=== PATIENT | female | born 1995 | race Caucasian/White ===

== ENCOUNTER 2018-04-20 12:55 | Emergency (ER) | payer OTHER, MEDICAID ==
[2018-04-20 14:20] LABS: ADD MAN DIFF? NO
[2018-04-20 14:21] LABS: BASOPHILS % 0.3 % (0.0-2.0); EOSINOPHILS % 0.3 % (0.0-7.0); HEMATOCRIT 36.8 % (37.0-47.0); HEMOGLOBIN 12.7 g/dl (12.0-16.0); LYMPHOCYTES # 1.6 10^3/ul (0.8-2.9); LYMPHOCYTES % 14.1 % (18.0-55.0); MEAN CORPUSCULAR HEMOGLOBIN 30.2 pg (29.0-33.0); MEAN CORPUSCULAR HGB CONC 34.5 g/dl (32.0-37.0); MEAN CORPUSCULAR VOLUME 87.4 fl (72.0-104.0); MEAN PLATELET VOLUME 11.1 fl (7.4-10.4); MONOCYTE # 0.5 10^3/ul (0.3-0.9); MONOCYTES % 4.3 % (0.0-13.0); NEUTROPHIL # 9.1 10^3/ul (1.6-7.5); NEUTROPHILS % 80.6 % (30.0-74.0); PLATELET COUNT 226 10^3/UL (140-415); RED BLOOD COUNT 4.21 10^6/ul (4.20-5.40); RED CELL DISTRIBUTION WIDTH 12.5 % (11.5-14.5)
[2018-04-20 14:21] LABS: WHITE BLOOD COUNT 11.3 10^3/ul (4.8-10.8)
[2018-04-20] MEDS: METOCLOPRAMIDE 10 MG INJ IV (14:25)
[2018-04-20] MEDS: SOD CHLORIDE 0.9% 1,000 ML IV (14:25)
[2018-04-20 14:30] LABS: UR BACTERIA FEW /HPF (NONE SEEN); UR MUCUS MANY /HPF (NONE SEEN); UR RBC 1 /HPF (0-5); UR SQUAMOUS EPITHELIAL CELL FEW /HPF (FEW); UR WBC 3 /HPF (0-5)
[2018-04-20 14:39] LABS: ALANINE AMINOTRANSFERASE 12 IU/L (13-69); ALBUMIN 4.3 g/dl (3.3-4.9); ALBUMIN/GLOBULIN RATIO 1.34; ALKALINE PHOSPHATASE 53 IU/L (42-121); ANION GAP 12 (8-16); ASPARTATE AMINO TRANSFERASE 20 IU/L (15-46); BILIRUBIN,INDIRECT 0.8 mg/dl (0-1.1); BILIRUBIN,TOTAL 0.8 mg/dl (0.2-1.3); BLOOD UREA NITROGEN 10 mg/dl (7-20); CALCIUM 9.1 mg/dl (8.4-10.2); CARBON DIOXIDE 23 mmol/L (21-31); CHLORIDE 105 mmol/L (97-110); CREATININE 0.46 mg/dl (0.44-1.00); GLUCOSE 88 mg/dl (70-220); POTASSIUM 4.1 mmol/L (3.5-5.1); SODIUM 136 mmol/L (135-144); TOTAL PROTEIN 7.5 g/dl (6.1-8.1)
[2018-04-20 14:42] LABS: ADD UMIC YES; UR ASCORBIC ACID NEGATIVE (NEGATIVE); UR BILIRUBIN (Dip) NEGATIVE (NEGATIVE); UR BLOOD (Dip) NEGATIVE (NEGATIVE); UR CLARITY CLOUDY (CLEAR); UR COLOR YELLOW (YELLOW); UR GLUCOSE (Dip) NEGATIVE (NEGATIVE); UR KETONES (Dip) NEGATIVE (NEGATIVE); UR LEUKOCYTE ESTERASE (Dip) NEGATIVE Leu/ul (NEGATIVE); UR NITRITE (Dip) NEGATIVE (NEGATIVE); UR SPECIFIC GRAVITY (Dip) 1.025 (1.003-1.030); UR TOTAL PROTEIN (Dip) NEGATIVE (NEGATIVE); UR UROBILINOGEN (Dip) NEGATIVE (NEGATIVE)
== END 2018-04-20 16:22 | disposition home or self-care (01) ==
LOC: FTE 12:55
DX: O99.89 Other specified diseases and conditions complicating pregnancy, childbirth and the puerperium (principal); R42 Dizziness and giddiness; Z3A.17 17 weeks gestation of pregnancy
CPT/HCPCS: 36415; 76805; 80053; 81001; 85025; 96361; 96374; 99285-25

== ENCOUNTER 2018-09-30 18:59 | Inpatient (IN) | payer OTHER ==
[2018-09-30] MEDS ORDERED: LACTATED RINGER'S 1,000 ML IV (20:18)
[2018-09-30] MEDS: MINERAL OIL LIGHT 10 ML VIAL TOP (20:30)
[2018-09-30] MEDS ORDERED: OXYTOCIN 30 UNITS/LR 500 ML IV (20:30)
[2018-09-30] MEDS ORDERED: IBUPROFEN 600 MG TAB PO (20:30)
[2018-09-30] MEDS ORDERED: CARBOPROST 250 MCG INJ IM (20:30)
[2018-09-30] MEDS ORDERED: MISOPROSTOL 200 MCG TAB PR (20:30)
[2018-09-30] MEDS ORDERED: METHYLERGONOVINE 0.2 MG INJ IM (20:30)
[2018-09-30] MEDS ORDERED: BUTORPHANOL 2 MG INJ IV (20:30)
[2018-09-30 20:54] LABS: ADD MAN DIFF? NO
[2018-09-30 20:59] LABS: WHITE BLOOD COUNT 11.4 10^3/ul (4.8-10.8)
[2018-09-30 20:59] LABS: BASOPHILS % 0.4 % (0.0-2.0); EOSINOPHILS # 0.1 10^3/ul (0.0-0.5); EOSINOPHILS % 0.5 % (0.0-7.0); HEMATOCRIT 33.1 % (37.0-47.0); HEMOGLOBIN 11.1 g/dl (12.0-16.0); LYMPHOCYTES # 2.7 10^3/ul (0.8-2.9); LYMPHOCYTES % 23.5 % (18.0-55.0); MEAN CORPUSCULAR HEMOGLOBIN 29.9 pg (29.0-33.0); MEAN CORPUSCULAR HGB CONC 33.5 g/dl (32.0-37.0); MEAN CORPUSCULAR VOLUME 89.2 fl (72.0-104.0); MEAN PLATELET VOLUME 11.3 fl (7.4-10.4); MONOCYTE # 0.7 10^3/ul (0.3-0.9); MONOCYTES % 6.4 % (0.0-13.0); NEUTROPHIL # 7.8 10^3/ul (1.6-7.5); NEUTROPHILS % 68.6 % (30.0-74.0); PLATELET COUNT 192 10^3/UL (140-415); RED BLOOD COUNT 3.71 10^6/ul (4.20-5.40); RED CELL DISTRIBUTION WIDTH 13.5 % (11.5-14.5)
[2018-09-30] MEDS: LACTATED RINGER'S 1,000 ML IV (21:09)
[2018-09-30 21:17] LABS: INR 0.93; PROTIME 12.6 Sec (11.9-14.9)
[2018-09-30 21:18] LABS: PARTIAL THROMBOPLASTIN TIME 28.3 Sec (23.0-35.0)
[2018-09-30] MEDS: AMPICILLIN 2 GM/NS (PMX) 100 ML IV (21:25)
[2018-09-30 21:50] LABS: HEPATITIS B SURFACE ANTIGEN NEGATIVE (NEGATIVE)
[2018-09-30 22:19] LABS: AMPHETAMINE/METHAMPHETAMINE Negative (NEGATIVE); BARBITURATES Negative (NEGATIVE); BENZODIAZEPINES Negative (NEGATIVE); CANNABINOIDS Negative (NEGATIVE); COCAINE Negative (NEGATIVE); OPIATES Negative (NEGATIVE)
[2018-10-01] MEDS: AMPICILLIN 1 GM/NS (PMX) 50 ML IV ×2 (00:40→05:16)
[2018-10-01] MEDS: LACTATED RINGER'S 1,000 ML IV ×2 (05:44→12:18)
[2018-10-01] MEDS: METHYLERGONOVINE 0.2 MG INJ IM (07:28)
[2018-10-01] MEDS: OXYTOCIN 30 UNITS/LR 500 ML IV ×3 (07:57→10:34)
[2018-10-01] MEDS ORDERED: MISOPROSTOL 200 MCG TAB PR (08:00)
[2018-10-01] MEDS ORDERED: NACL 0.9% 3 ML SYG IV (08:00)
[2018-10-01] MEDS ORDERED: OXYTOCIN 30 UNITS/LR 500 ML IV (08:00)
[2018-10-01] MEDS ORDERED: SENNA/DOCUSATE NA (8.6MG/50MG) TAB PO (08:00)
[2018-10-01] MEDS ORDERED: CARBOPROST 250 MCG INJ IM (08:00)
[2018-10-01] MEDS ORDERED: OXYCODONE/ASPIRIN (4.88/325) TAB PO (08:00)
[2018-10-01] MEDS: LIDOCAINE 1% (MPF) 30 ML INJ INJ (08:03)
[2018-10-01] MEDS: WITCH HAZEL/GLYCERIN PAD PR (10:32)
[2018-10-01] MEDS: SENNA/DOCUSATE NA (8.6MG/50MG) TAB PO ×2 (10:33→20:45)
[2018-10-01] MEDS: LANOLIN HPA 1 PKT TOP (12:50)
[2018-10-01] MEDS: IBUPROFEN 600 MG TAB PO ×2 (12:50→17:20)
[2018-10-01 19:26] LABS: RAPID PLASMA REAGIN NONREACTIVE (NR)
[2018-10-02] MEDS: IBUPROFEN 600 MG TAB PO ×5 (00:36→23:33)
[2018-10-02 08:08] LABS: ADD MAN DIFF? NO
[2018-10-02 08:13] LABS: WHITE BLOOD COUNT 14.9 10^3/ul (4.8-10.8)
[2018-10-02 08:13] LABS: BASOPHILS % 0.3 % (0.0-2.0); EOSINOPHILS # 0.1 10^3/ul (0.0-0.5); EOSINOPHILS % 0.6 % (0.0-7.0); HEMATOCRIT 32.1 % (37.0-47.0); HEMOGLOBIN 10.5 g/dl (12.0-16.0); LYMPHOCYTES # 4.2 10^3/ul (0.8-2.9); LYMPHOCYTES % 28.2 % (18.0-55.0); MEAN CORPUSCULAR HEMOGLOBIN 29.7 pg (29.0-33.0); MEAN CORPUSCULAR HGB CONC 32.7 g/dl (32.0-37.0); MEAN CORPUSCULAR VOLUME 90.7 fl (72.0-104.0); MEAN PLATELET VOLUME 12.1 fl (7.4-10.4); MONOCYTE # 0.8 10^3/ul (0.3-0.9); MONOCYTES % 5.2 % (0.0-13.0); NEUTROPHIL # 9.7 10^3/ul (1.6-7.5); PLATELET COUNT 204 10^3/UL (140-415); RED BLOOD COUNT 3.54 10^6/ul (4.20-5.40); RED CELL DISTRIBUTION WIDTH 13.7 % (11.5-14.5)
[2018-10-02] MEDS: SENNA/DOCUSATE NA (8.6MG/50MG) TAB PO ×2 (09:25→21:15)
[2018-10-02] MEDS: INFLUENZA VIRUS VACCINE 0.5 ML (DISPENSING) IM* (11:05)
[2018-10-02 12:36] LABS: RUBELLA ANTIBODY - IGM <20.00 AU/mL
[2018-10-03] MEDS: IBUPROFEN 600 MG TAB PO ×2 (05:51→11:14)
[2018-10-03] MEDS: SENNA/DOCUSATE NA (8.6MG/50MG) TAB PO (09:00)
[2018-10-03] MEDS: DIPHTH/TET/ACEL PERTUSS (ADULT) 0.5 ML VIAL IM* (09:01)
[2018-10-03] MEDS: WITCH HAZEL/GLYCERIN PAD PR (11:14)
== END 2018-10-03 12:50 | disposition home or self-care (01) | DRG 807 ==
LOC: OBT 18:59 → PP1 10-01 09:23 → L-D 19:00 → OBT 19:50 → L-D 19:50
PROC: 10E0XZZ Delivery of Products of Conception, External Approach (ICD-10-PCS; principal; 2018-10-01)
DX: O80 Encounter for full-term uncomplicated delivery (principal); Z37.0 Single live birth; Z3A.39 39 weeks gestation of pregnancy; Z23 Encounter for immunization
CPT/HCPCS: 76815; 80307; 85025; 85610; 85730; 86592; 86762; 86850; 86900; 86901; 87340; 90686; 90715